=== PATIENT | female | born 1995 | race Caucasian/White ===

== ENCOUNTER 2020-11-16 20:20 | Emergency (ER) | payer OTHER ==
--- NOTE | 2020-11-16 22:54 | EDM.PDOC ---
ED HPI GENERAL MEDICAL PROBLEM - General Chief Complaint: Head Injury Stated Complaint: FACE INJURY Time Seen by Provider: 11/16/20 22:54 - History of Present Illness INITIAL COMMENTS - FREE TEXT/NARRATIVE: 25-year-old female presents the emergency room with some facial trauma. The patient was attaching some lighting to a pipe that was leading up and she inadvertently pulled it down the pipe struck her across the bridge of the nose and her left orbit. She has some right maxillary discomfort as well. Patient states it hurts for her to try and move her eyes. She has had no nausea or vomiting no loss of consciousness no other injury associated with this most unfortunate event. She absolutely denies being she is not with anybody. Right Eye Pain Score (Numeric/FACES): 2 - Related Data Allergies Allergy/AdvReac Type Severity Reaction Status Date / Time sulfamethoxazole Allergy Severe Hives Verified 11/16/20 20:36 [From ] trimethoprim [From ] Allergy Severe Hives Verified 11/16/20 20:36 Home Meds: Home Meds . [No Known Home Meds] 11/16/20 [History] Past Medical History Musculoskeletal History: Reports: Other (See Below) Other Musculoskeletal History: Ehler's Dahnson Syndrome--Connective Tissue Disorder - Past Surgical History HEENT Surgical History: Reports: Tonsillectomy Musculoskeletal Surgical History: Reports: Arthroscopic Knee Social & Family History - Tobacco Use Tobacco Use Status *Q: Never Tobacco User - Caffeine Use Caffeine Use: Reports: Coffee - Recreational Drug Use Recreational Drug Use: No ED ROS GENERAL - Review of Systems Review Of Systems: See Below Constitutional: Reports: No Symptoms HEENT: Reports: Eye Pain Respiratory: Reports: No Symptoms Cardiovascular: Reports: No Symptoms GI/Abdominal: Reports: No Symptoms, Mucous in Stool Musculoskeletal: Reports: No Symptoms ED EXAM, HEAD INJURY - Physical Exam Exam: See Below Exam Limited By: No Limitations General Appearance: Alert, No Apparent Distress Head: Atraumatic, Normocephalic, Other (She may smoke and ecchymosis developing over the bridge of her nose otherwise no significant external trauma visualized) Eyes: Bilateral Eye: EOMI, Normal Inspection, PERRL Ears: Normal External Exam, Normal Canal, Hearing Grossly Normal, Normal TMs Nose: Normal Inspection, Normal Mucousa, No Blood Throat/Mouth: Normal Inspection, Normal Lips, Normal Teeth, Normal Gums, Normal Oropharynx, Normal Voice, No Airway Compromise Neck: Non-Tender, Full Range of Motion, Normal Alignment, Normal Inspection Respiratory: No Respiratory Distress, Lungs Clear, Normal Breath Sounds, No Accessory Muscle Use, Chest Non-Tender Cardiovascular: Normal Peripheral Pulses, Regular Rate, Rhythm, No Edema, No Gallop, No JVD, No Murmur, No Rub GI/Abdominal Exam: Normal Bowel Sounds, Soft, Non-Tender, No Organomegaly, No Distention, No Abnormal Bruit, No Mass Course - Vital Signs Last Recorded V/S: Last Vital Signs Temp 36.6 C 11/16/20 20:34 Pulse 84 11/16/20 20:34 Resp 16 11/16/20 20:34 BP 158/104 H 11/16/20 20:34 Pulse Ox 97 11/16/20 20:34 - Orders/Labs/Meds Orders: Active Orders 24 hr Category Date Time Status Max Facial Sinus wo Cont [CT] Stat Exams 11/16/20 23:09 Taken - Re-Assessments/Exams Free Text/Narrative Re-Assessment/Exam: 11/16/20 23:14 I will check maxillofacial CT her exam is pretty unremarkable however she states it hurts for her to move her eyes and with this we will check a CT. The patient assures me she cannot be she has not been with anybody in quite some t curtis. 11/17/20 01:[address] is unremarkable no evidence of fracture. No air-fluid levels noted in the sinuses. Will discharge home at this time Departure - Departure Time of Disposition: 01:44 Disposition: Home, Self-Care 01 Clinical Impression: Contusion of face - Discharge Information Referrals: Krysta Moody MD [Primary Care Provider] - Forms: ED Department Discharge Additional Instructions: Return to the emergency room with any questions problems or worsening symptoms. Follow-up with your regular healthcare provider on Monday if you are still having any symptoms. Tylenol as needed for discomfort Sepsis Event Note (ED) - Evaluation Sepsis Screening Result: No Definite Risk - Focused Exam Vital Signs: Vital Signs Temp Pulse Resp BP Pulse Ox 11/16/20 20:34 36.6 C 84 16 158/104 H 97 - My Orders Last 24 Hours: My Active Orders 11/16/20 23:09 Max Facial Sinus wo Cont [CT] Stat - Assessment/Plan Last 24 Hours: My Active Orders 11/16/20 23:09 Max Facial Sinus wo Cont [CT] Stat
--- NOTE | 2020-11-17 07:51 | CT ---
CT facial bones Technique: Multiple axial sections were obtained through the facial bones. Reconstructed coronal and sagittal images were also obtained. Comparison: No prior facial imaging is available. Findings: Mastoid sinuses and paranasal sinuses show nothing acute. Right and left globes are symmetric in size. No retrobulbar abnormality is appreciated. No fracture or other acute bony abnormality is appreciated. Impression: 1. Nothing acute is appreciated on CT study of the facial bones. Diagnostic code #1 I agree with preliminary report from [facility], finalized on 11/17/20, 1:48 AM CDT, code 1
== END 2020-11-17 01:55 | disposition home or self-care (01) ==
LOC: JD.ED 20:20
DX: S00.33XA Contusion of nose, initial encounter (principal); Z88.1 Allergy status to other antibiotic agents; W22.09XA Striking against other stationary object, initial encounter
CPT/HCPCS: 70486; 70486-26; 99283; 99283-25